=== PATIENT | male | born 1955 | race Caucasian/White ===

== ENCOUNTER 2016-10-17 10:38 | Day surgery (SDC) | payer OTHER ==
[~2016-10-17] VITALS: Ht 193 cm; Wt 90.9 kg
[~2016-10-17 10:38] MED LIST: 0.9% Sodium Chloride 1,000 ML IV SCH; ACET-837 PO; ASPI-973 PO; CYCL10TA9 PO; DONE10TA5 PO; GLUC1CAP35 PO; IBUP200C PO; MEMA5TAB PO; MULT-285 PO; OMEG1CAP5 PO; SERT50TA PO; Sodium Chloride LOK Flush 10 mL Syringe IV PRN; TAMS0.4C29 PO; [UNRECOGNIZED DRUG - CODE] PO; fentaNYL-PF 50 mCg/mL 2 mL Inj IVPUSH PRN
[2016-10-17 11:06] VITALS: BP 135/85; PULSE 93; RESP 16; O2SAT 97
[2016-10-17 13:12] VITALS: BP 149/90; PULSE 72; RESP 16; O2SAT 97
[2016-10-17 13:19] VITALS: BP 146/94; PULSE 78; RESP 16; O2SAT 98
[2016-10-17 13:27] VITALS: BP 152/77; PULSE 78; RESP 16; O2SAT 96
--- NOTE | 2016-10-17 13:56 | ENDO ---
[address] [address] ENDOSCOPY PROCEDURE PATIENT: SULEIMAN MONDRAGON : 1955 MR#: [id number] ADMIT: 10/17/2016 JOB ID: [id number] DATE: 10/17/2016 PRIMARY PROVIDER: Gonzalo Sapp. PROCEDURE: Esophagogastroduodenoscopy with biopsies and a colonoscopy with hot snare polypectomy, cold snare polypectomy and cold forceps polypectomy. INDICATIONS: A 61-year-old male with intermittent nausea and vomiting. He also has altered bowel habit but prior colonoscopy demonstrated a very poor prep. I had suspected that he may be dealing with some intermittent suboptimal colonic evacuation and even obstipation type symptoms. He has not implemented the bowel regimen discussed in clinic just yet. Endoscopic interrogation is pursued. EQUIPMENT: GIF H 190 and a PCF H 180 AL. SEDATION: 1. 10 mg Versed. 2. 175 mcg fentanyl. COMPLICATIONS: None identified. BOWEL PREPARATION: Fair. PROCEDURAL INFORMATION: After the risks and benefits were explained, written and verbal informed consent was obtained. The patient was brought into the endoscopy suite and placed into the left lateral decubitus position. Sedation was achieved as above. The scope was introduced into the mouth through the bite block, and advanced under direct visualization through the oropharynx, esophagus, stomach, and onto the second portion of the duodenum. The scope was slowly withdrawn to carefully examine the mucosa for any defects or lesions. Retroflexed views were accomplished in the stomach. The stomach was decompressed. The scope removed from the patient who tolerated the procedure well. The patient was then turned around. A digital rectal examination accomplished. Mild internal hemorrhoids noted. The scope was introduced into the rectum and advanced under direct visualization to the level of the cecum, as identified by the appendiceal orifice and ileocecal valve. The scope was slowly withdrawn to carefully examine the mucosa for any defects or lesions. Retroflexed views were accomplished in the rectum. The colon was decompressed. The scope removed from the patient who tolerated the procedure well. This examination was prolonged. Scope time was approximately 60 minutes. A 22 modifier was thus requested. It was a very difficult navigation to finally arrive in the cecum. The patient had an extremely lengthy redundant colon and in order to arrive at the cecum, all of the endoscope was utilized. FINDINGS: 1. Duodenum: No significant pathology identified from the bulb through to the second portion. Random biopsies from D2 were acquired to exclude sprue. 2. Stomach: The patient had a mild diffuse gastropathy. Biopsy was taken for exclusion of Helicobacter or any other underlying histopathology. There were no significant ulcers, mass lesions or outlet obstruction. Retroflexed views of the LES were rather unremarkable. a. Esophagus: The squamocolumnar junction extended up into the tubular esophagus suggestive of short-segment Schmitz's. The GE junction was at about 46 cm from the incisors. The pinchcock was at about 49 cm from the incisors. There was an approximately 2 cm segment of Schmtiz's that would measure out at C0.5M2 by PROG criteria. Biopsies were taken from the segment of probable specialized intestinal metaplasia. No other esophageal pathology was identified. 3. Colon: Very challenging navigation, lengthy colon. There were four colon polyps seen and removed today. All of these were submitted as "colon polyps." Two of them came by way of hot snare, one by cold snare and one by way of cold forceps. Retroflexed views from within the rectum were unremarkable. ENDOSCOPIC DIAGNOSES: 1. 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 2. Hiatal hernia. 3. Gastropathy. 4. Lengthy redundant colon. 5. Mild hemorrhoids. 6. Multiple colon polyps. RECOMMENDATIONS: 1. Await histopathology. 2. If Schmitz's is identified, then repeat EGD would be suggested in 9-12 months. 3. Low-dose omeprazole is recommended. 4. Repeat colonoscopy in three years' time. 5. Otherwise the patient is encouraged to implement the recommendations made in clinic to facilitate improved stooling habits.
--- NOTE | 2016-10-18 14:08 | PATH ---
SURGICAL PATHOLOGY Attending Physician:Miles Pride CASE STATUS: Signed Out PATIENT NAME: SULEIMAN MONDRAGON PID: [id number] : 1955 DATE COLLECTED:10/17/2016 23:47 SPECIMEN: 1: Duodenum, Biopsy 2: Gastric, Biopsy 3: Esophagus, Biopsy 4: Colon, Biopsy CLINICAL HISTORY: 1). DUODENAL BIOPSY 2). GASTRIC BIOPSY 3). DISTAL ESOPHAGUS BIOPSY 4). COLON POLYPS X4 FINAL DIAGNOSIS: 1.DUODENAL BIOPSY: DUODENAL MUCOSA WITH INCREASED INTRAEPITHELIAL LYMPHOCYTES AND NORMAL VILLOUS ARCHITECTURE, SEE COMMENT. NO PARASITES OR GRANULOMAS IDENTIFIED. NEGATIVE FOR DYSPLASIA AND MALIGNANCY. 2.GASTRIC BIOPSY: GASTRIC MUCOSA WITH MINIMAL CHRONIC INFLAMMATION. NEGATIVE FOR INTESTINAL METAPLASIA. NEGATIVE FOR HELICOBACTER ORGANISMS ON H&E STAIN. NEGATIVE FOR DYSPLASIA AND MALIGNANCY. 3.DISTAL ESOPHAGUS BIOPSY: SQUAMOCOLUMNAR MUCOSA WITH CHRONIC INFLAMMATORY CHANGES CONSISTENT WITH REFLUX. NEGATIVE FOR INTESTINAL/GARCIA' S METAPLASIA. NEGATIVE FOR DYSPLASIA AND MALIGNANCY. 4COLON POLYPS: TUBULAR ADENOMAS, 2. HYPERPLASTIC POLYPS, 2. ICD10 code K59.1 K29.70 D12.6 K21.9 NOTE: Increased intraepithelial lymphocytes in duodenal mucosa with normal villous architecture is most commonly associated with celiac disease or other protein allergy, nonsteroidal anti-inflammatory drugs (NSAIDS) or angiotensin receptor blockers, bacterial overgrowth, reaction to Helicobacter pylori infection, and lymphocytic colitis. Correlation with clinical and endoscopic findings is necessary for a definitive diagnosis. Immunohistochemical stains for Helicobacter pylori will be performed on the gastric mucosa to further evaluate for Helicobacter organisms, and an addendum will be issued with the findings. GROSS DESCRIPTION: The specimen is received in four formalin filled containers labeled with the patient's name. 1). The specimen is sublabeled "duodenal" and consists of 2 portions of tissue which aggregate to 0.5 x 0.3 x 0.2 CM. The specimen is entirely submitted in cassette 1A. 2). The specimen is sublabeled "gastric" and consists of a 0.3 x 0.2 x 0.2 CM portion of tissue which is entirely submitted in cassette 2A. 3). The specimen is sublabeled "distal esophagus" and consists of 3 portions of tissue which aggregate to 0.3 x 0.3 x 0.3 CM. The specimen is entirely submitted in cassette 3A. 4). The specimen is sublabeled "colon polyps X4" and consists of 4 tiny portions of tissue which aggregate to 0.3 x 0.3 x 0.3 CM. The specimen is entirely submitted in cassette 4A. 10/18/2016 [facility] MICRO DESCRIPTION: See diagnosis. ICD-9 CODES: CPT CODES: 1: 80684 2: 36558, 30737 3: 74152 4: 47014 PROCEDURE/ADDENDA: Immunohistochemistry SPI Interpretation {Not Entered} Results-Comments Immunohistochemical stains for Helicobacter pylori are used to further evaluate the gastric biopsy (specimen 2) for Helicobacter organisms. The patient tissue is stained with polyclonal antibody to Helicobacter pylori. The positive control stains appropriately. Result: The patient tissue shows no staining. Interpretation: The gastric mucosa is negative for Helicobacter organisms by immunohistochemical stains. This test was developed and its performance characteristics determined by [facility]. It has not been cleared or approved by the [place]. Food and Drug Administration. The FDA has determined that such clearance or approval is not necessary. This test is used for clinical purposes. It should not be regarded as investigational or for research. Electronically Signed Out Adriana Butler MD Electronically Signed Out Adriana Butler MD [facility] Pathology [facility] [address], [place] [address] Technical component performed at [facility], [facility] [address], [place], [address]
== END 2016-10-17 23:59 | disposition home or self-care (01) ==
LOC: END 10:38
PROVIDERS: ATTEND Internal Medicine Gastroenterology
DX: R19.4 Change in bowel habit (principal); R11.2 Nausea with vomiting, unspecified; D12.6 Benign neoplasm of colon, unspecified; K21.9 Gastro-esophageal reflux disease without esophagitis; K44.9 Diaphragmatic hernia without obstruction or gangrene; K29.50 Unspecified chronic gastritis without bleeding; F17.210 Nicotine dependence, cigarettes, uncomplicated
CPT/HCPCS: 43239; 45380; 45385; 99153; G0500; J2250; J3010; J7030